=== PATIENT | male | born 1945 | race African-American/Black ===

== ENCOUNTER 2017-10-22 05:27 | Emergency (ER) | payer OTHER ==
[~2017-10-22] VITALS: Ht 177.8 cm; Wt 80.0 kg
[2017-10-22] MEDS ORDERED: ASPIRIN 325MG TABLET PO NR (05:45)
[2017-10-22 06:24] LABS: CHLORIDE 110 mEq/L (98-107)
[2017-10-22 06:30] LABS: ETHANOL BLOOD 265 mg/dL
[2017-10-22 06:34] LABS: BASOPHILS % 1.9 % (0.0-2.0); EOSINOPHILS % 2.2 % (0.0-5.0); HEMATOCRIT. 43.7 % (42.0-52.0); HEMOGLOBIN. 14.8 g/dL (14.0-18.0); LYMPHOCYTES % 56.9 % (20.0-50.0); MEAN CORPUSCULAR HEMOGLOBIN 29.5 pg (28.0-32.0); MEAN CORPUSCULAR VOLUME 87.2 fL (80.0-94.0); MONOCYTES % 9.5 % (2.0-8.0); NEUTROPHILS % 29.5 % (40.0-76.0); PLATELET 190 x1000/uL (130-400); RED BLOOD CELL COUNT 5.01 mill/uL (4.7-6.1); RED CELL DISTRIBUTION WIDTH 15.6 % (11.6-14.6)
[2017-10-22 06:43] LABS: PARTIAL THROMBOPLASTIN TIME 27.7 sec (23.4-31.0)
[2017-10-22 09:16] VITALS: BP 103/66
== END 2017-10-22 10:53 | disposition home or self-care (01) ==
LOC: ER 05:27 → CANRESERV 07:22 → ENRESERV 07:22 → ER 10:53 → CANBEDREQ 13:51
DX: R07.89 Other chest pain (principal); F10.229 Alcohol dependence with intoxication, unspecified; F14.10 Cocaine abuse, uncomplicated; I11.0 Hypertensive heart disease with heart failure; I50.9 Heart failure, unspecified; E88.09 Other disorders of plasma-protein metabolism, not elsewhere classified; F17.200 Nicotine dependence, unspecified, uncomplicated; Y90.8 Blood alcohol level of 240 mg/100 ml or more; Z59.0 Homelessness; Z79.82 Long term (current) use of aspirin; Z91.14 Patient's other noncompliance with medication regimen
CPT/HCPCS: 36415; 71045; 80053; 83880; 84484; 85025; 85610; 85730; 93005; 99285; G0482

== ENCOUNTER 2018-11-04 07:22 | Emergency (ER) | payer MEDICAID, MEDICARE, OTHER ==
[~2018-11-04] VITALS: Ht 182.9 cm; Wt 82.0 kg
[2018-11-04 07:47] VITALS: BP 140/80
== END 2018-11-04 08:48 | disposition home or self-care (01) ==
LOC: ER 07:22
DX: F10.229 Alcohol dependence with intoxication, unspecified (principal); Y90.0 Blood alcohol level of less than 20 mg/100 ml; I11.0 Hypertensive heart disease with heart failure; I50.9 Heart failure, unspecified; F11.10 Opioid abuse, uncomplicated
CPT/HCPCS: 99283

== ENCOUNTER 2018-11-10 00:07 | Emergency (ER) | payer MEDICARE, OTHER ==
[~2018-11-10] VITALS: Ht 188 cm; Wt 100.0 kg
[2018-11-10 00:15] VITALS: BP 127/78
== END 2018-11-10 00:41 | disposition left against medical advice (07) ==
LOC: ER 00:07
DX: Z53.21 Procedure and treatment not carried out due to patient leaving prior to being seen by health care provider (principal)

== ENCOUNTER 2018-12-25 19:34 | Emergency (ER) | payer MEDICARE, OTHER ==
[~2018-12-25] VITALS: Ht 175.3 cm; Wt 91.0 kg
[2018-12-25 19:38] VITALS: BP 169/89
== END 2018-12-25 22:00 | disposition left against medical advice (07) ==
LOC: ER 19:34
DX: Z53.21 Procedure and treatment not carried out due to patient leaving prior to being seen by health care provider (principal)

== ENCOUNTER 2019-01-09 14:20 | Emergency (ER) | payer MEDICARE, OTHER ==
[~2019-01-09] VITALS: Ht 172.7 cm; Wt 100.0 kg
[2019-01-09 14:23] VITALS: BP 178/101
== END 2019-01-09 15:00 | disposition left against medical advice (07) ==
LOC: ER 14:57
DX: Z53.21 Procedure and treatment not carried out due to patient leaving prior to being seen by health care provider (principal)

== ENCOUNTER 2019-01-10 10:11 | Emergency (ER) | payer MEDICARE, OTHER ==
[~2019-01-10] VITALS: Ht 177.8 cm; Wt 79.0 kg
[2019-01-10 10:13] VITALS: BP 164/92
== END 2019-01-10 10:30 | disposition left against medical advice (07) ==
LOC: ER 10:11
DX: R05 Cough (principal); R09.81 Nasal congestion; Z53.21 Procedure and treatment not carried out due to patient leaving prior to being seen by health care provider

== ENCOUNTER 2019-01-13 00:56 | Emergency (ER) | payer MEDICARE, OTHER ==
[~2019-01-13] VITALS: Ht 175.3 cm; Wt 79.0 kg
[2019-01-13 01:08] VITALS: BP 166/98
== END 2019-01-13 03:27 | disposition left against medical advice (07) ==
LOC: ER 00:56
DX: R06.02 Shortness of breath (principal); Z53.21 Procedure and treatment not carried out due to patient leaving prior to being seen by health care provider

== ENCOUNTER 2019-04-04 09:58 | Emergency (ER) | payer MEDICARE, OTHER ==
[~2019-04-04] VITALS: Ht 182.9 cm; Wt 90.0 kg
[2019-04-04] MEDS ORDERED: SODIUM CHLORIDE 0.9% 1,000 ML IV ONE (11:03)
[2019-04-04 11:23] LABS: EOSINOPHILS % 2.1 % (0.0-5.0); HEMOGLOBIN. 14.5 g/dL (14.0-18.0); LYMPHOCYTES % 35.9 % (20.0-50.0); MEAN CORPUSCULAR HEMOGLOBIN 30.3 pg (28.0-32.0); MEAN PLATELET VOLUME 9.3 fl (7.4-10.4); MONOCYTES % 12.6 % (2.0-8.0); NEUTROPHILS % 48.4 % (40.0-76.0); PLATELET 138 x1000/uL (130-400); RED BLOOD CELL COUNT 4.78 mill/uL (4.7-6.1); RED CELL DISTRIBUTION WIDTH 15.3 % (11.6-14.6)
[2019-04-04 11:24] LABS: CHLORIDE 108 mEq/L (98-107)
[2019-04-04 11:27] LABS: ETHANOL BLOOD 152 mg/dL
[2019-04-04 11:28] LABS: PARTIAL THROMBOPLASTIN TIME 27.6 sec (23.4-31.0); PROTHROMBIN TIME 10.2 sec (9.6-11.0)
[2019-04-04 12:42] LABS: CLARITY URINE CLEAR (CLEAR); COLOR URINE DARK YELLOW (YELLOW); KETONES URINE TRACE (NEGATIVE); LEUKOCYTE ESTERASE URINE NEGATIVE (NEGATIVE); NITRITE URINE NEGATIVE (NEGATIVE); OCCULT BLOOD URINE 3+ (NEGATIVE); PH URINE 5.5 (4.5-8.0); PROTEIN URINE 1+ (NEGATIVE); SPECIFIC GRAVITY URINE 1.029 (1.005-1.030)
[2019-04-04 13:01] LABS: *AMPHETAMINES SCREEN URINE NEGATIVE (NEGATIVE); *BARBITURATES SCREEN URINE NEGATIVE (NEGATIVE)
[2019-04-04 13:02] LABS: *BENZODIAZEPINES SCREEN URINE PRESUMTIVE POSITIVE (NEGATIVE); *COCAINE SCREEN URINE PRESUMTIVE POSITIVE (NEGATIVE); METHADONE URINE SCREEN NEGATIVE (NEGATIVE); OPIATES URINE SCREEN NEGATIVE (NEGATIVE); PHENCYCLIDINE URINE SCREEN NEGATIVE (NEGATIVE)
[2019-04-04 13:06] LABS: CANNABINOID URINE SCREEN NEGATIVE (NEGATIVE)
[2019-04-04 16:21] VITALS: BP 130/67
== END 2019-04-04 16:21 | disposition home or self-care (01) ==
LOC: ER 09:58
DX: F10.129 Alcohol abuse with intoxication, unspecified (principal); Y90.6 Blood alcohol level of 120-199 mg/100 ml; F14.129 Cocaine abuse with intoxication, unspecified; F15.129 Other stimulant abuse with intoxication, unspecified; J98.11 Atelectasis
CPT/HCPCS: 36415; 70450; 71045; 80053; 80305; 80320; 81003; 83880; 84484; 85025; 85610; 85730; 93005; 96360; 96361; 99284; J7030; G0480

== ENCOUNTER 2019-04-06 17:37 | Emergency (ER) | payer MEDICARE, OTHER ==
[~2019-04-06] VITALS: Ht 175.3 cm; Wt 80.0 kg
[2019-04-06 18:18] VITALS: BP 159/90
== END 2019-04-06 19:10 | disposition left against medical advice (07) ==
LOC: ER 17:37
DX: F10.129 Alcohol abuse with intoxication, unspecified (principal); Y90.9 Presence of alcohol in blood, level not specified; I10 Essential (primary) hypertension
CPT/HCPCS: 99283

== ENCOUNTER 2020-10-30 19:17 | Emergency (ER) | payer MEDICARE, OTHER ==
[~2020-10-30] VITALS: Ht 172.7 cm; Wt 82.0 kg
[2020-10-30 19:17] VITALS: BP 160/100
== END 2020-10-30 19:57 | disposition left against medical advice (07) ==
LOC: ER 19:17
DX: F41.9 Anxiety disorder, unspecified (principal); Z53.21 Procedure and treatment not carried out due to patient leaving prior to being seen by health care provider

== ENCOUNTER 2021-01-05 02:44 | Emergency (ER) | payer MEDICARE, OTHER ==
[~2021-01-05] VITALS: Ht 175.3 cm; Wt 84.0 kg
[2021-01-05] MEDS ORDERED: FUROSEMIDE 40MG TABLET PO ONE (03:15)
[2021-01-05] MEDS ORDERED: ASPIRIN 325MG EC TABLET PO ONE (03:15)
[2021-01-05 03:32] LABS: CHLORIDE 111 mEq/L (98-107)
[2021-01-05 04:12] LABS: BASOPHILS % 0.8 % (0.0-2.0); EOSINOPHILS % 1.7 % (0.0-5.0); HEMATOCRIT. 42.8 % (42.0-52.0); HEMOGLOBIN. 14.1 g/dL (14.0-18.0); LYMPHOCYTES % 40.9 % (20.0-50.0); MEAN CORPUSCULAR VOLUME 94.2 fL (80.0-94.0); MEAN PLATELET VOLUME 9.2 fl (7.4-10.4); MONOCYTES % 13.6 % (2.0-8.0); PLATELET 216 x1000/uL (130-400); RED BLOOD CELL COUNT 4.54 mill/uL (4.7-6.1); RED CELL DISTRIBUTION WIDTH 14.4 % (11.6-14.6)
[2021-01-05] MEDS ORDERED: GUAIFENESIN 200MG/10ML SUGAR FREE UDC PO PRN (06:45)
[2021-01-05] MEDS ORDERED: ONDANSETRON HCL 4MG/2ML INJ IV PRN (06:45)
[2021-01-05] MEDS ORDERED: HYDROCODONE/ACETAMINOPHEN 5/325MG TABLET PO PRN (06:45)
[2021-01-05] MEDS ORDERED: ACETAMINOPHEN 325MG TABLET PO PRN (06:45)
[2021-01-05 07:37] VITALS: BP 123/83
[2021-01-05] MEDS ORDERED: FUROSEMIDE 40MG/4ML VIAL IV SCH (08:00)
[2021-01-05] MEDS ORDERED: ASPIRIN 81MG EC TABLET PO SCH (09:00)
[2021-01-05] MEDS ORDERED: DOCUSATE SODIUM 100MG CAPSULE PO PRN (09:00)
[2021-01-05] MEDS ORDERED: METOPROLOL TARTRATE 25MG TABLET PO SCH (09:00)
[2021-01-05] MEDS ORDERED: ENOXAPARIN 40MG/0.4ML SYR SUBCUT SCH (09:00)
== END 2021-01-05 08:05 | disposition left against medical advice (07) ==
LOC: ER 02:59 → EDBEDREQ 04:26 → EDBEDREQTM 04:26 → ER 08:05 → CANBEDREQ 17:10
DX: R74.8 Abnormal levels of other serum enzymes (principal); R60.0 Localized edema; L84 Corns and callosities; I50.9 Heart failure, unspecified; Z59.0 Homelessness
CPT/HCPCS: 36415; 80053; 83880; 84484; 85025; 93005; 99284; J1940